=== PATIENT | male | born 1960 | race Caucasian/White ===

== ENCOUNTER 2024-09-22 09:56 | Emergency (ER) | payer OTHER ==
[~2024-09-22] VITALS: Ht 167.6 cm; Wt 80.8 kg
[2024-09-22] MEDS ORDERED: ACETAMINOPHEN 325 MG TAB PO ONE (11:25)
== END 2024-09-22 13:18 | disposition home or self-care (01) ==
LOC: ED 09:56
DX: S93.401A Sprain of unspecified ligament of right ankle, initial encounter (principal); S93.601A Unspecified sprain of right foot, initial encounter; I48.91 Unspecified atrial fibrillation; E11.9 Type 2 diabetes mellitus without complications; Z91.030 Bee allergy status; Z98.890 Other specified postprocedural states; W18.39XA Other fall on same level, initial encounter; Y93.89 Activity, other specified; Y92.89 Other specified places as the place of occurrence of the external cause; Y99.8 Other external cause status

== ENCOUNTER 2024-12-18 12:33 | Emergency (ER) | payer OTHER ==
[~2024-12-18] VITALS: Ht 167.6 cm; Wt 80.7 kg
[2024-12-18] MEDS ORDERED: SODIUM CHLORIDE 0.9% 500 ML IV ONE (13:10)
[2024-12-18 13:27] LABS: BASO # 0.0 10*3/uL (0.0-0.1); BASO % 0.1 % (0.0-1.0); EOS # 0.0 10*3/uL (0.0-0.4); EOS % 0.0 % (1.0-4.0); MEAN CELL VOLUME 91.9 fl (80.0-94.0); MEAN CORPUSCULAR HGB 30.2 pg (27.0-31.0); MEAN PLATELET VOLUME 8.9 fl (9.6-12.3); MONO # 1.4 10*3/uL (0.1-1.0); MONO % 10.3 % (3.0-9.0); NEUT # 10.9 10*3/uL (2.3-7.9); NEUT % 80.3 % (47.0-73.0); NUCLEATED RED BLOOD CELL 0.0 % (0.0-0.0); NUCLEATED RED BLOOD CELL 0.0 10*3/uL (0.0-0.0); PLATELET COUNT AUTOMATED 148 10*3/uL (130-400); RED CELL DISTRI WIDTH 13.0 % (0-14.5)
[2024-12-18 13:46] LABS: BUN 15 mg/dl (9-23)
[2024-12-18 15:29] LABS: BILIRUBIN Negative (Negative); BLOOD 2+ (Negative); CLARITY Clear (Clear); COLOR Orange (Yellow); KETONE 2+ (Negative); LEUKO ESTERASE Negative (Negative); NITRITE Negative (Negative); PH 5.0 (4.5-8.0); SPECIFIC GRAVITY >= 1.030 (1.001-1.030); UROBILINOGEN 1.0 E.U./dl (0.0-1.0)
[2024-12-18 15:38] LABS: BACTERIA 1+; MUCOUS TRACE
[2024-12-18] MEDS ORDERED: Nitrofurantoin Monohydrate/N 100 MG CAP PO ONE (16:05)
[2024-12-18] MEDS ORDERED: MACROBID100 M1 PO (16:43)
== END 2024-12-18 16:58 | disposition home or self-care (01) ==
LOC: ED 12:33
PROVIDERS: Nurse Practitioner Family
DX: N39.0 Urinary tract infection, site not specified (principal); R42 Dizziness and giddiness; I11.0 Hypertensive heart disease with heart failure; I50.9 Heart failure, unspecified; E11.9 Type 2 diabetes mellitus without complications; Z91.030 Bee allergy status; Z98.890 Other specified postprocedural states

== ENCOUNTER 2024-12-22 09:30 | Emergency (ER) | payer OTHER ==
[~2024-12-22] VITALS: Ht 167.6 cm; Wt 80.7 kg
[2024-12-22] VITALS (11 sets, daily range): BP systolic 73–117; BP diastolic 37–97
[~2024-12-22 09:30] MED LIST: MACROBID100 M1 PO
[2024-12-22 10:23] LABS: MEAN CELL VOLUME 88.8 fl (80.0-94.0); MEAN CORPUSCULAR HGB 30.4 pg (27.0-31.0); MEAN PLATELET VOLUME 9.2 fl (9.6-12.3); NUCLEATED RED BLOOD CELL 0.0 % (0.0-0.0); NUCLEATED RED BLOOD CELL 0.0 10*3/uL (0.0-0.0); PLATELET COUNT AUTOMATED 184 10*3/uL (130-400); RED CELL DISTRI WIDTH 12.9 % (0-14.5)
[2024-12-22 10:24] LABS: MANUAL DIFF REFLEX YES
[2024-12-22 10:38] LABS: DOHLE BODIES FEW; VACUOLATION OF NEUTROPHILS SLIGHT
[2024-12-22 10:39] LABS: BUN 25.0 mg/dl (9-23); PLATELET SUFFICIENCY NORMAL (NORMAL)
[2024-12-22] MEDS ORDERED: SODIUM CHLORIDE 0.9% 1,000 ML IV ONE ×3 (11:35→14:50)
[2024-12-22] MEDS ORDERED: DIGOXIN 500 MCG/2 ML AMP IV ONE (11:35)
[2024-12-22] MEDS ORDERED: Ondansetron Hydrochloride 4 MG/2 ML VIAL IV ONE (12:30)
[2024-12-22] MEDS ORDERED: fentaNYL CITRATE/PF 50 MCG/ML SYRINGE IV ONE (12:30)
[2024-12-22] MEDS ORDERED: POTASSIUM CHLORIDE 20 MEQ TAB PO ONE (13:20)
[2024-12-22] MEDS ORDERED: ALDACTONE25 MG PO (13:36)
[2024-12-22] MEDS ORDERED: ATORVASTATIN CA10 M1 PO (13:38)
[2024-12-22] MEDS ORDERED: ELIQUIS5 M1 PO (13:39)
[2024-12-22] MEDS ORDERED: CITALOPRAM40 MG PO (13:39)
[2024-12-22] MEDS ORDERED: ENTRESTO 49 MG1 EACH PO (13:40)
[2024-12-22] MEDS ORDERED: JARDIANCE10 MG PO (13:40)
[2024-12-22] MEDS ORDERED: GLIMEPIRIDE2 MG PO (13:40)
[2024-12-22] MEDS ORDERED: METOPROLOL SUCC50 M1 PO (13:41)
[2024-12-22] MEDS ORDERED: NOREPINEPHRINE BITARTRATE/D5W 250 ML IV SCH (15:30)
[2024-12-30 14:07] LABS: RESULT 1 Gemella morbillorum (.)
== END 2024-12-22 17:35 | disposition short-term general hospital (02) ==
LOC: ED 09:30 → EDHOLD 13:23 → ED 17:35
PROVIDERS: Emergency Medicine
DX: I48.20 Chronic atrial fibrillation, unspecified (principal); N17.9 Acute kidney failure, unspecified; E87.6 Hypokalemia; R06.02 Shortness of breath; N50.89 Other specified disorders of the male genital organs; R42 Dizziness and giddiness; I11.0 Hypertensive heart disease with heart failure; I50.9 Heart failure, unspecified; E78.5 Hyperlipidemia, unspecified; Z98.890 Other specified postprocedural states; Z91.030 Bee allergy status